=== PATIENT | male | born 1970 | race Caucasian/White ===

== ENCOUNTER 2019-01-30 06:54 | Day surgery (SDC) | payer BC ==
[~2019-01-30 06:54] MED LIST: ACETAMINOPHEN 1,000 MG/100 ML BTL IVPB ONE; CLINDAMYCIN PHOS/D5W 900MG 900 MG/50 ML BAG IVPB ONE
[2019-01-30] MEDS ORDERED: MORPHINE SULFATE PF 10MG/10ML *10ML VIAL IV ONE (06:55)
[2019-01-30] MEDS ORDERED: PROPOFOL 10 MG/ML VIAL IV ONE (06:55)
[2019-01-30] MEDS ORDERED: BUPIVACAINE 0.25% MPF 30ML VIAL IVP ONE (06:55)
[2019-01-30] MEDS ORDERED: BUPIVACAINE LIPOSOME/PF 133MG/10ML VIAL IV ONE (06:55)
[2019-01-30] MEDS ORDERED: LIDOCAINE 2% MDV (20MG/ML) 20ML VIAL IV ONE (06:55)
[2019-01-30] MEDS ORDERED: MIDAZOLAM HCL 2MG/2ML VIAL IV ONE (06:55)
[2019-01-30] MEDS ORDERED: ROCURONIUM BROMIDE 50MG/5ML VIAL IV ONE (06:55)
[2019-01-30] MEDS ORDERED: SEVOFLURANE 250 ML INH ONE (06:55)
[2019-01-30] MEDS ORDERED: DEXAMETHASONE 4 MG/ML 1ML VIAL IVP ONE (06:55)
[2019-01-30] MEDS ORDERED: SUGAMMADEX SODIUM 200 MG/2 ML VIAL IV ONE (06:55)
[2019-01-30] MEDS ORDERED: RINGERS SOLUTION,LACTATED 1,000 ML IV ONE ×3 (07:45→12:14)
[2019-01-30] MEDS ORDERED: BUPIVACAINE 0.5% W/EPI MPF 30 ML VIAL SQ ONE (09:43)
[2019-01-30] MEDS ORDERED: METHYLPREDNISOLONE 40MG/VIAL IU ONE (09:47)
[2019-01-30] MEDS ORDERED: ONDANSETRON HCL IV 4 MG/2 ML VIAL IVP ONE (12:08)
[2019-01-30] MEDS ORDERED: SCOPOLAMINE 1 PATCH TDSY TD ONE (12:08)
--- NOTE | 2019-02-01 13:31 | Operative Note ---
DATE OF SURGERY: 01/30/2019 PREOPERATIVE DIAGNOSIS: Tear of the rotator cuff on the left. POSTOPERATIVE DIAGNOSES: 1. Large chronic tear of the rotator cuff. 2. Profound external impingement of left shoulder. 3. Anterior glenohumeral labral tear. 4. Arthrosis left distal clavicle. OPERATION: 1. Repair of a chronically torn rotator cuff tear. 2. Left shoulder arthroscopy with interarticular debridement. 3. Left shoulder open acromioplasty, CA ligament resection, subacromial bursectomy. 4. Left shoulder distal clavicle resection. STAFF SURGEON: Fausto Box MD ANESTHESIA: General. PREPARATION: Chloraprep. INDIVIDUAL CONSIDERATIONS: None. PROCEDURE: The patient was taken to the operating room, placed supine on the operating room table. He had a successful induction with general anesthetic. He was then placed in a semi-seated beach chair position. His left arm and shoulder were prepped and draped in the usual fashion. The patient had posterior portal identified for arthroscopy. Prior to this, there was no instability on exam. The skin was infiltrated with 0.5% Marcaine with epinephrine prior. I then tried an inflow cannula into the shoulder through the posterior approach but I just could not, so I decided to do this later. The patient had an anterior approach to the subacromial space and distal clavicle. Skin was again infiltrated with 0.5% Marcaine with epinephrine prior. Sharp dissection carried down through skin and subcutaneous tissues. Small veins were coagulated with a Bovie. An anterior deltoid interval was developed. Care was taken not to split the deltoid more than about 4 cm distal to the anterior tip of the acromion to prevent injury to the axillary nerve. Once in the subacromial space, there was a large hough of fluid consistent with a tear, a very tight subacromial space, large spurs anteriorly, and spurs at the AC joint. The deltoid was then taken subperiosteally off the anterior aspect of the acromion, over the top of the intact CA ligament, and off the anterior aspect of a highly degenerated distal clavicle. CA ligament was resected with a Bovie. Distal clavicle was resected with an oscillating saw taking about 1 cm. The patient had a very large downsloping acromial spur. An anterior acromioplasty was performed taking about 1 cm and tapering towards posteromedially to include the spurs at the AC joint. The undersurface was smoothed with a rasp. A very large tear of the rotator cuff was present. It was luckily easily mobilized. It included the lateral half of the supraspinatus and the more anterior half of the infraspinatus. It was debrided back to good bleeding tendon. The total length was almost 4 cm. I was able to identify the tuberosity and make a small trough and then with multiple Ethibond sutures buried knot, multiple Ethibond retention sutures were placed into the end of the freshened tendon. It was drawn into the very shallow trough at the tuberosity with the sutures tied down distally. This gave near anatomic solid repair. I put it through a full range of motion, no further impingement. At this point, I guided the scope sheath with a blunt tip into the joint and then inflated the joint. I was able to inspect my repair, which was intact underneath. Long head was intact. Glenohumeral joint was intact. I made an anterior accessory portal in a retrograde fashion with a Wissinger lexie, and then I debrided out a small anterior labral tear which was centrally. Subscap tendon was normal. No loose bodies were seen inferior. After irrigation, the portals were closed with leticia. In the anterior wound, after irrigation, the deltoid was reattached to the remaining acromion with multiple interrupted #2 Vicryl going directly through the bony acromion. The periosteal cuff of the distal clavicle was closed with running #2 Vicryl. Anterior deltoid interval was closed with running #1 Vicryl. Subcu was closed with 2-0 plus Vicryl and skin was closed with leticia. An 18- gauge spinal was placed into the subacromial space. About 15 mL of 0.5% Marcaine with epinephrine along with 10 mg of morphine was injected into the subacromial space. A sterile bulky compressive dressing and sling were applied. The patient tolerated the procedure well. Needle and sponge counts were correct. Estimated blood loss was minimal. He was taken back to recovery in good condition. There were no complications. [facility]
== END 2019-01-30 12:55 | disposition home or self-care (01) ==
LOC: SUR 06:54
PROVIDERS: ATTEND Orthopaedic Surgery
DX: M75.102 Unspecified rotator cuff tear or rupture of left shoulder, not specified as traumatic (principal); S43.432A Superior glenoid labrum lesion of left shoulder, initial encounter; M75.42 Impingement syndrome of left shoulder; M19.012 Primary osteoarthritis, left shoulder; I10 Essential (primary) hypertension; E78.00 Pure hypercholesterolemia, unspecified
CPT/HCPCS: 76942; C9290; J1030; J2405; J3490; J7120